=== PATIENT | female | born 1995 | race African-American/Black ===

== ENCOUNTER 2019-01-06 02:22 | Emergency (ER) | payer SELFPAY ==
[~2019-01-06] VITALS: Ht 162.6 cm; Wt 59.4 kg
--- NOTE | 2019-01-06 02:32 | NUR ---
PT AAOX4. AMBULATORY. PT C/O HAVING HEMORRHOIDS SINCE 12/19/18. USES OINTMENT AND WARM BATHS BUT IT DID NOT HELP . PT STATING SHE HAS A 10/10 THROBBING PAIN AND PRESSURE. -BLEEDING. AWAITING FOR MD FOR EVAL.
--- NOTE | 2019-01-06 03:07 | NUR ---
Patient discharged to home in stable condition. Verbal after care instructions given. Patient verbalizes understanding of instruction and RX. PT ambulatory with a steady gait.
[2019-01-06 03:11] VITALS: BP 128/88
== END 2019-01-06 03:08 | disposition home or self-care (01) ==
LOC: ER 02:28
DX: K64.4 Residual hemorrhoidal skin tags (principal); Z88.1 Allergy status to other antibiotic agents